=== PATIENT | female | born 1970 | race Caucasian/White ===

== ENCOUNTER → 2023-05-04 | Outpatient (CLI) | payer BC ==
[2023-05-06 14:09] LABS: HPV 16 Negative (Negative); HPV 18 Negative (Negative); HPV OTHER HR TYPES Negative (Negative)
== END | disposition home or self-care (01) ==
LOC: LAB 10:13 → LAB SHORT 10:13
PROVIDERS: Obstetrics & Gynecology
DX: Z01.419 Encounter for gynecological examination (general) (routine) without abnormal findings (principal)
CPT/HCPCS: 87624; G0145

== ENCOUNTER → 2023-05-28 | Outpatient (CLI) | payer BC | END | disposition home or self-care (01) | LOC: PLD 13:27 → LAB SHORT 13:27 | DX: N84.2 Polyp of vagina (principal) | CPT/HCPCS: 88305 ==